=== PATIENT | male | born 1955 | race Caucasian/White ===

== ENCOUNTER 2017-04-30 12:31 | Emergency (ER) | payer SELFPAY ==
[~2017-04-30] VITALS: Ht 185.4 cm; Wt 102.3 kg
[2017-04-30 12:32] VITALS: BP 160/97; PULSE 103; RESP 18; TEMP 98.3; O2SAT 96
[2017-04-30] MEDS ORDERED: CEPH-460 PO (13:07)
[2017-04-30] MEDS ORDERED: BACT800T5 PO (13:07)
--- NOTE | 2017-04-30 13:07 | PD ---
HPI Chief Complaint: Skin Problem Time Seen by Provider: 12:53 Travel History International Travel<30 days: No Contact w/Intl Traveler<30days: No Traveled to known affect area: No History of Present Illness HPI This is a 61-year-old male here with redness and swelling to the right forearm at the site of an insect bite. Duration 3 days. Denies fever or chills. Unsure of the insect. Symptom severity is moderate. No aggravating or alleviating factors. PFSH Past Medical History Medical History: Denies Significant Hx Tetanus Vaccination: > 5 Years Social History Alcohol Use: No Tobacco Use: No Substance Use: No Allergies-Medications (Allergen,Severity, Reaction): Coded Allergies: No Known Allergies (Unverified , 04/30/17) Reported Meds & Prescriptions Reported Meds & Active Scripts Active No Active Prescriptions or Reported Medications Review of Systems Except as stated in HPI: all other systems reviewed are Neg General / Constitutional: No: Fever Physical Exam Narrative GENERAL: Alert and well-appearing 61-year-old male SKIN: Warm and dry. 13 x 7 area of erythema to the right forearm with a central area of induration and a small pustule. No fluctuance. No lymphangitis. No joint involvement. HEAD: Normocephalic. EYES: No injection or drainage. NECK: Supple, trachea midline. CARDIOVASCULAR: Regular rate and rhythm RESPIRATORY: Breath sounds equal bilaterally. No accessory muscle use. MUSCULOSKELETAL: No cyanosis, or edema. See skin noted above. No joint involvement. Data Data Last Documented VS Vital Signs Date Time Temp Pulse Resp B/P (MAP) Pulse Ox O2 Delivery O2 Flow Rate FiO2 04/30/17 12:32 98.3 103 18 160/97 (118) 96 Orders Orders Sulfamet-Trimeth Ds 800-160 Mg (Bactrim (04/30/17 13:15) Cephalexin (Keflex) (04/30/17 13:15) MDM Medical Decision Making Medical Screen Exam Complete: Yes Emergency Medical Condition: Yes Differential Diagnosis Infected insect bite, abscess, cellulitis Narrative Course This is a 61-year-old male here with an infected insect bite and surrounding cellulitis to the right forearm. He is nontoxic appearing. The area has a small area of induration without fluctuance. The area was marked with a wound marker. He will be prescribed Bactrim and Keflex. Instructed to follow-up with his primary doctor for recheck in one to 2 days. Return prior feet develops new or worsening symptoms. Diagnosis Primary Impression: Cellulitis Qualified Codes: L03.113 - Cellulitis of right upper limb Referrals: Primary Care Physician Additional Instructions: Antibiotics as prescribed. Follow-up with her doctor in 1-2 days for recheck. Return if he developed fever, chills, increasing pain or redness. Scripts Sulfamethoxazole-Trimethoprim (Bactrim DS) 800-160 Mg Tab 1 TAB PO BID for Infection, #20 TAB 0 Refills Prov: Taryn Watson 04/30/17 Cephalexin (Keflex) 500 Mg Cap 500 MG PO Q6H for Infection for 10 Days, #40 CAP 0 Refills Prov: Taryn Watson 04/30/17 Disposition: 01 DISCHARGE HOME Condition: Stable Taryn Watson Apr 30, 2017 13:07
[2017-04-30] MEDS ORDERED: SULFAMETHOXAZOLE-TRIMETHOPRIM DS 800-160 MG TAB PO ONE (13:15)
[2017-04-30] MEDS ORDERED: CEPHALEXIN MONOHYDRATE 500 MG CAP PO ONE (13:15)
== END 2017-04-30 13:15 | disposition home or self-care (01) ==
LOC: NEPK 12:31
DX: L03.113 Cellulitis of right upper limb (principal); S50.861A Insect bite (nonvenomous) of right forearm, initial encounter; W57.XXXA Bitten or stung by nonvenomous insect and other nonvenomous arthropods, initial encounter
CPT/HCPCS: 99284

== ENCOUNTER 2017-05-03 19:09 | Emergency (ER) | payer OTHER ==
[~2017-05-03] VITALS: Ht 185.4 cm; Wt 100.0 kg
[~2017-05-03 19:09] MED LIST: BACT800T5 PO; CEPH-460 PO
[2017-05-03 19:10] VITALS: BP 129/83; PULSE 92; RESP 16; TEMP 98.3; O2SAT 99
[2017-05-03] MEDS ORDERED: CLINDAMYCIN INJ 600 MG in SODIUM CHLORIDE 0.9% INJ 100 ML IV ONE (20:45)
[2017-05-03] MEDS ORDERED: SODIUM CHLOR 0.9% 1000 ML INJ 1,000 ML IV ONE (20:45)
--- NOTE | 2017-05-03 21:55 | PD ---
HPI Chief Complaint: Skin Problem Time Seen by Provider: 20:20 Travel History International Travel<30 days: No Contact w/Intl Traveler<30days: No Traveled to known affect area: No History of Present Illness HPI 61 y male presents to the ED with a persistent lesion to the right forearm. Says he was here in the ED April 30 and he was diagnosed with cellulitis and discharged home with Bactrim and Keflex. States that part of the cellulitis has resolved however, states that the redness has moved up the inside of his arm. Patient denies fever or chills. Denies nausea, vomiting. States he otherwise feels well but he is concerned because of the redness up his arm. In addition, patient states that the lesion on the outside of his form is still hard and tender to palpation. States compliance with his medications. States he is on day 2-2-1/2 of his Bactrim and Keflex. PFSH Social History Alcohol Use: Yes Tobacco Use: No Substance Use: No Allergies-Medications (Allergen,Severity, Reaction): Coded Allergies: No Known Allergies (Unverified , 05/03/17) Reported Meds & Prescriptions Reported Meds & Active Scripts Active Clindamycin (Clindamycin HCl) 300 Mg Cap 300 Mg PO TID 7 Days Bactrim DS (Sulfamethoxazole-Trimethoprim) 800-160 Mg Tab 1 Tab PO BID Keflex (Cephalexin) 500 Mg Cap 500 Mg PO Q6H 10 Days Review of Systems Except as stated in HPI: all other systems reviewed are Neg Physical Exam Narrative GENERAL: Well-nourished in no apparent distress resting comfortably in bed SKIN: Focused skin assessment warm/dry. Right forearm HEAD: Atraumatic. Normocephalic. EYES: Pupils equal and round. No scleral icterus. No injection or drainage. ENT: No nasal bleeding or discharge. Mucous membranes pink and moist. NECK: Trachea midline. No JVD. CARDIOVASCULAR: Regular rate and rhythm. No murmur appreciated. RESPIRATORY: No accessory muscle use. Clear to auscultation. Breath sounds equal bilaterally. GASTROINTESTINAL: Abdomen soft, non-tender, nondistended. Hepatic and splenic margins not palpable. MUSCULOSKELETAL: No obvious deformities. No clubbing. No cyanosis. No edema. NEUROLOGICAL: Awake and alert. No obvious cranial nerve deficits. Motor grossly within normal limits. Normal speech. PSYCHIATRIC: Appropriate mood and affect; insight and judgment normal. Data Data Last Documented VS Vital Signs Date Time Temp Pulse Resp B/P (MAP) Pulse Ox O2 Delivery O2 Flow Rate FiO2 05/03/17 22:39 05/03/17 22:35 83 16 96 Room Air 05/03/17 19:10 98.3 Orders Orders Sodium Chlor 0.9% 1000 Ml Inj (Ns 1000 M (05/03/17 20:45) Clindamycin Inj (Cleocin Inj) (05/03/17 20:45) Ed Discharge Order (05/03/17 22:07) MDM Medical Decision Making Medical Screen Exam Complete: Yes Emergency Medical Condition: Yes Differential Diagnosis Right forearm cellulitis, abscess, erysipelas Narrative Course 61 y male presents to the ED with a persistent lesion to the right forearm. Says he was here in the ED April 30 and he was diagnosed with cellulitis and discharged home with Bactrim and Keflex. States that part of the cellulitis has resolved however, states that the redness has moved up the inside of his arm. Patient denies fever or chills. Denies nausea, vomiting. States he otherwise feels well but he is concerned because of the redness up his arm. In addition, patient states that the lesion on the outside of his form is still hard and tender to palpation. States compliance with his medications. States he is on day 2-2-1/2 of his Bactrim and Keflex. Vital signs stable. Exam findings consistent with an abscess and cellulitis of the right arm. Area of erythema marked and significantly decreased in the initial cellulitic area. Right middle arm with area of erysipelas versus cellulitis extending 1-2 inches without lymphangial pathic spread. Neurovascularly intact. Incision and drainage performed on the lateral aspect of right forearm. Clindamycin 600 mg IV administered in the emergency department to today along with 1 L IV fluid bolus. Patient will be discharged to continue Bactrim. Add clindamycin. Hold Keflex. I strongly advised him to follow-up with his primary care physician within 1-2 days. Advised that if he is not he should follow-up here in the emergency department 1-2 days. Advised on worsening infectious process. Advised on wound care. Diagnosis Primary Impression: Abscess Additional Impression: Cellulitis Qualified Codes: L03.113 - Cellulitis of right upper limb Referrals: Primary Care Physician Additional Instructions: Follow up with your primary care physician within 2-3 days. If your symptoms persist or worsen, return to the emergency department. Keep area clean and dry for 24 hrs. Return to the emergency department in 1-2 days for wound change and wound check. Take all antibiotics as prescribed. Change dressings daily after 24 hours. If he developed increased redness, swelling, or pain return to the emergency department. Scripts Clindamycin (Clindamycin) 300 Mg Cap 300 MG PO TID for Infection for 7 Days, CAP 0 Refills Prov: Evelyne Layne 05/03/17 Disposition: 01 DISCHARGE HOME Condition: Stable Evelyne Layne May 03, 2017 21:55
[2017-05-03] MEDS ORDERED: CLIN300C5 PO (22:02)
[2017-05-03 22:35] VITALS: BP 143/91; PULSE 83; RESP 16; O2SAT 96
== END 2017-05-03 22:50 | disposition home or self-care (01) ==
LOC: NEPC 19:09
DX: L02.413 Cutaneous abscess of right upper limb (principal); L03.113 Cellulitis of right upper limb; Z79.2 Long term (current) use of antibiotics
CPT/HCPCS: 96365; 99284; J7030

== ENCOUNTER 2017-12-17 10:03 | Inpatient (IN) ==
[2017-12-17] MEDS ORDERED: Acetaminophen 325 MG Tablet PO ONE (12:20)
--- NOTE | 2017-12-17 12:30 | ED ---
HPI General Chief Complaint: Extremity Injury, Upper Stated Complaint: Right arm pain Time Seen by Provider: 12/17/17 12:05 Source: patient and old records reviewed Mode of arrival: ambulatory Limitations: no limitations History of Present Illness HPI narrative: The patient is a 62-year-old male presenting with complaint of right elbow swelling. The patient was seen here on May 2017 with similar symptoms and prior to that on April 30 was diagnosed with cellulitis and was discharged with Bactrim and Keflex. He did get better with the antibiotics but then returned again on the second and he was placed on Bactrim clindamycin was also given at that time in the ED. Patient was advised to continue on Bactrim and Keflex was replaced with clindamycin as an outpatient. He never followed up and he stated that his swelling did resolve. He he has been having right elbow pain and some swelling to palpation for the past 2 days. It does not hurt with active or passive range of motion internal he is just hurts over the fluid collection which is at the olecranon bursa area. Denies fever chills nausea vomiting diarrhea denies any confusion. Related Data Home Medications Medication Instructions Recorded Confirmed No Known Home Medications 12/17/17 12/17/17 Allergies Allergy/AdvReac Type Severity Reaction Status Date / Time No Known Allergies Allergy Unverified 05/03/17 19:26 Review of Systems ROS: all other systems reviewed are negative [facility] Medical History Medical History Cellulitis of right elbow (Acute) Osteoarthritis (Acute) Surgical History Surgical History H/O repair of left rotator cuff (Acute) Hx of Achilles tendon repair (Acute) Hx of detached retina repair (Acute) Hx of hernia repair (Acute) Hx of reconstruction of anterior cruciate ligament tear (Acute) Hx of total knee arthroplasty (Acute) Family History Family History Mother Bone cancer Father Pulmonary asbestosis Social History Social History Substance History: No History of Abuse Smoking Status: Never smoker How Often Do You Have a Drink Containing Alcohol: 2 to 3 times a week Immunization History Tetanus Immunization: Unsure Hx Influenza Vaccine This Season: No Exam Narrative Exam Narrative: GENERAL: Alert and oriented no distress SKIN: Focused skin assessment warm/dry. Cellulitis of the right elbow area. HEAD: Atraumatic. Normocephalic. EYES: Pupils equal and round. No scleral icterus. No injection or drainage. ENT: No nasal bleeding or discharge. Mucous membranes pink and moist. NECK: Trachea midline. No JVD. CARDIOVASCULAR: Regular rate and rhythm. No murmur appreciated. RESPIRATORY: No accessory muscle use. Clear to auscultation. Breath sounds equal bilaterally. GASTROINTESTINAL: Abdomen soft, non-tender, nondistended. Hepatic and splenic margins not palpable. MUSCULOSKELETAL: Right elbow with swelling in the bursa area posteriorly no tenderness to palpation no tenderness with passive or active range of motion. Neurovascularly intact. Flexion fluid collection noted on the olecranon bursa area. NEUROLOGICAL: Awake and alert. No obvious cranial nerve deficits. Motor grossly within normal limits. Normal speech. PSYCHIATRIC: Appropriate mood and affect; insight and judgment normal. Course Consultations Consultation #1: Dr Pedraza orthopedic surgery called us back recommends aspiration of the bursal fluid. and admission for possible wash-out in the ER. Wants him NPO after midnight Time: 15:37 Initial Documented Vital Signs Temperature 98.1 F 12/17/17 10:08 Pulse Rate 96 H 12/17/17 10:08 Respiratory Rate 15 12/17/17 10:08 Blood Pressure 156/91 H 12/17/17 10:08 Pulse Oximetry 95 12/17/17 10:08 Last Documented Vital Signs Temperature 98.1 F 12/17/17 10:08 Pulse Rate 88 12/17/17 12:08 Respiratory Rate 18 12/17/17 12:08 Blood Pressure 155/88 H 12/17/17 12:08 Pulse Oximetry 97 12/17/17 12:08 Medical Decision Making [facility] Narrative Medical decision making narrative: Joint was aspirated and synovial fluid was sent to lab for cultures and sensitivities as per also request. Marked cellulitis of the right elbow Also noted on physical examination and CT and was communicated to orthopedic surgeon. He was started on 2 g of Ancef and placed n.p.o. after midnight. Medical Screen Exam Complete: Yes Emergency Medical Condition: Yes Lab Data Lab results reviewed: Yes I reviewed the patient's lab results. Result diagrams: 12/17/17 12:39 12/17/17 12:39 Lab Results 12/17/17 12/17/17 12/17/17 Range/Units 12:39 12:39 12:39 WBC 10.0 (4.0-11.0) th/mm3 RBC 5.16 (4.50-5.90) mil/mm3 Hgb 16.6 (13.0-17.0) gm/dL Hct 48.8 (39.0-51.0) % MCV 94.6 (80.0-100.0) fL MCH 32.2 (27.0-34.0) pg MCHC 34.1 (32.0-36.0) % RDW 13.3 (11.6-17.2) % Plt Count 224 (150-450) th/mm3 MPV 8.2 (7.0-11.0) fL Neut % (Auto) 70.7 H (16.0-70.0) % Lymph % (Auto) 22.2 (9.0-44.0) % Evangeline % (Auto) 6.2 (0.0-8.0) % Eos % (Auto) 0.4 (0.0-4.0) % Baso % (Auto) 0.5 (0.0-2.0) % Neut # (Auto) 7.1 (1.8-7.7) th/mm3 Lymph # (Auto) 2.2 (1.0-4.8) th/mm3 Evangeline # (Auto) 0.6 (0.0-0.9) th/mm3 Eos # (Auto) 0.0 (0.0-0.4) th/mm3 Baso # (Auto) 0.0 (0.0-0.2) th/mm3 WBC Differential . Differential Comment Auto diff final ESR 2 (0-20) mm/hr Sodium 140 (136-145) meq/L Potassium 4.0 (3.5-5.1) meq/L Chloride 106 (98-107) meq/L Carbon Dioxide 25.3 (21.0-32.0) meq/L Anion Gap 9 (5-15) meq/L BUN 14 (7-18) mg/dL Creatinine 1.24 (0.60-1.30) mg/dL Estimated GFR 59 L (>89) mL/min Random Glucose 98 (74-106) mg/dL Calcium 8.3 L (8.5-10.1) mg/dL Synovial Crystals (None) 12/17/17 Range/Units 15:55 WBC (4.0-11.0) th/mm3 RBC (4.50-5.90) mil/mm3 Hgb (13.0-17.0) gm/dL Hct (39.0-51.0) % MCV (80.0-100.0) fL MCH (27.0-34.0) pg MCHC (32.0-36.0) % RDW (11.6-17.2) % Plt Count (150-450) th/mm3 MPV (7.0-11.0) fL Neut % (Auto) (16.0-70.0) % Lymph % (Auto) (9.0-44.0) % Evangeline % (Auto) (0.0-8.0) % Eos % (Auto) (0.0-4.0) % Baso % (Auto) (0.0-2.0) % Neut # (Auto) (1.8-7.7) th/mm3 Lymph # (Auto) (1.0-4.8) th/mm3 Evangeline # (Auto) (0.0-0.9) th/mm3 Eos # (Auto) (0.0-0.4) th/mm3 Baso # (Auto) (0.0-0.2) th/mm3 WBC Differential Differential Comment ESR (0-20) mm/hr Sodium (136-145) meq/L Potassium (3.5-5.1) meq/L Chloride (98-107) meq/L Carbon Dioxide (21.0-32.0) meq/L Anion Gap (5-15) meq/L BUN (7-18) mg/dL Creatinine (0.60-1.30) mg/dL Estimated GFR (>89) mL/min Random Glucose (74-106) mg/dL Calcium (8.5-10.1) mg/dL Synovial Crystals None (None) Imaging Data Radiologist's impression: Elbow CT 12/17/17 12:20 CONCLUSION: 1. Prominent olecranon bursa with peripheral enhancement, possible bursitis. Impressive surrounding cellulitis. 2. 2 small loose bodies within the joint space Discharge Plan Discharge Disposition Patient Disposition: 30 Still Patient Discharge Condition Condition: Good Discharge Details Diagnosis: Olecranon bursitis, right elbow, Cellulitis of right elbow Physicians Team ED Provider: Danny Garsia Primary Care Provider: Primary Care Camila,Angela Other Providers: Jalil Pedraza Rxs /Orders / Referrals /Forms Prescriptions: No Action No Known Home Medications RF: 0 Discharge Instructions Patient Printed Instructions: Incision and Drainage (DC) Status ED Status: Pending Admission
[2017-12-17 12:58] LABS: Baso % (Auto) 0.5 % (0.0-2.0); Eos % (Auto) 0.4 % (0.0-4.0); Hematocrit 48.8 % (39.0-51.0); Hemoglobin 16.6 gm/dL (13.0-17.0); Lymph # (Auto) 2.2 th/mm3 (1.0-4.8); Lymph % (Auto) 22.2 % (9.0-44.0); Mean Corpuscular HGB Conc 34.1 % (32.0-36.0); Mean Corpuscular Hemoglobin 32.2 pg (27.0-34.0); Mean Corpuscular Volume 94.6 fL (80.0-100.0); Mean Platelet Volume 8.2 fL (7.0-11.0); Mono # (Auto) 0.6 th/mm3 (0.0-0.9); Mono % (Auto) 6.2 % (0.0-8.0); Neut # (Auto) 7.1 th/mm3 (1.8-7.7); Neut % (Auto) 70.7 % (16.0-70.0); Platelet Count 224 th/mm3 (150-450); Red Blood Count 5.16 mil/mm3 (4.50-5.90); Red Cell Distribution Width 13.3 % (11.6-17.2)
[2017-12-17 13:22] LABS: Calcium 8.3 mg/dL (8.5-10.1); Carbon Dioxide 25.3 meq/L (21.0-32.0)
[2017-12-17] MEDS ORDERED: ceFAZolin 2 GM Premix Inj 2 GM/50 ML PIGGYBACK IV.SIG ONE (16:09)
[2017-12-17] MEDS ORDERED: Acetaminophen 325 MG Tablet PO PRN (16:39)
[2017-12-17] MEDS ORDERED: Vancomycin Consult Pharmacy OTHER PRN (17:20)
[2017-12-17 20:34] LABS: Lymphocytes,Synovial Fluid 1 %; Neutrophils,Synovial Fluid 99 % (0-25)
[2017-12-17 21:15] LABS: Appearance,Synovial Fluid Moderate (Clear); Color,Synovial Fluid Yellow (Straw)
[2017-12-17] MEDS: Senna/Docusate Sodium 8.6/50 MG Tablet PO SCH (21:47)
[2017-12-17] MEDS: Sod Chloride 0.9% Inj 1,000 ML IV.CONT SCH (21:47)
[2017-12-18] MEDS ORDERED: Vancomycin Inj 2,000 MG in Sodium Chlor 0.9% Inj 500 ML IV.SIG ONE ×2
[2017-12-18 07:21] LABS: Baso % (Auto) 0.2 % (0.0-2.0); Eos # (Auto) 0.1 th/mm3 (0.0-0.4); Eos % (Auto) 0.7 % (0.0-4.0); Hematocrit 42.7 % (39.0-51.0); Hemoglobin 14.9 gm/dL (13.0-17.0); Lymph # (Auto) 1.7 th/mm3 (1.0-4.8); Mean Corpuscular Hemoglobin 32.4 pg (27.0-34.0); Mean Corpuscular Volume 92.5 fL (80.0-100.0); Mean Platelet Volume 8.3 fL (7.0-11.0); Mono # (Auto) 0.6 th/mm3 (0.0-0.9); Neut % (Auto) 68.1 % (16.0-70.0); Platelet Count 214 th/mm3 (150-450); Red Blood Count 4.62 mil/mm3 (4.50-5.90); Red Cell Distribution Width 13.1 % (11.6-17.2); White Blood Count 7.4 th/mm3 (4.0-11.0)
[2017-12-18 07:45] LABS: Carbon Dioxide 24.5 meq/L (21.0-32.0); Potassium 3.9 meq/L (3.5-5.1)
[2017-12-18] MEDS: Senna/Docusate Sodium 8.6/50 MG Tablet PO SCH ×2 (08:09→21:38)
[2017-12-18] MEDS: Sod Chloride 0.9% Inj 1,000 ML IV.CONT SCH ×2 (08:12→17:27)
[2017-12-18] MEDS: Vancomycin Inj 1,300 MG in Sodium Chlor 0.9% Inj 500 ML IV.SIG SCH (12:37)
--- NOTE | 2017-12-18 20:17 | ECG ---
Date Performed: 12/18/2017 Time Performed: 07:06:07 PTAGE: 62 years EKG: Sinus rhythm NORMAL ECG NO PREVIOUS TRACING DOCTOR: Thelma Romero Interpretating Date/Time 12/18/2017 20:16:58
[2017-12-19] MEDS: Vancomycin Inj 1,300 MG in Sodium Chlor 0.9% Inj 500 ML IV.SIG SCH ×2 (00:30→13:54)
[2017-12-19] MEDS: Sod Chloride 0.9% Inj 1,000 ML IV.CONT SCH ×3 (00:33→14:01)
[2017-12-19] MEDS: Senna/Docusate Sodium 8.6/50 MG Tablet PO SCH ×2 (08:29→21:12)
[2017-12-19] MEDS ORDERED: Pharmacy Ordered Lab Info OTHER ONE (12:45)
[2017-12-20] MEDS: Sod Chloride 0.9% Inj 1,000 ML IV.CONT SCH ×2 (00:23→11:12)
[2017-12-20] MEDS: ceFAZolin Inj 2,000 MG in Sodium Chlor 0.9% Inj 80 ML IV.SIG SCH ×4 (00:23→22:59)
[2017-12-20] MEDS ORDERED: Vancomycin Inj 1,500 MG in Sodium Chlor 0.9% Inj 500 ML IV.SIG SCH (01:00)
[2017-12-20] MEDS: Senna/Docusate Sodium 8.6/50 MG Tablet PO SCH ×2 (08:08→23:00)
[2017-12-20] MEDS ORDERED: Chlorhexidine Gluconate 2% 1 Pack (2 Cloths) TOPICAL ONE (10:15)
[2017-12-20] MEDS ORDERED: Lidocaine PF 1% Inj 5 ML Syringe OTHER ONE (11:15)
[2017-12-20] MEDS ORDERED: Post-op Orders (for Pharmacy) OTHER STA (12:10)
[2017-12-20] MEDS ORDERED: fentaNYL Citrate Inj 100 MCG/2 ML Ampul ONE (12:13)
[2017-12-20] MEDS ORDERED: *morphine SULFATE 4 MG/ML PERIprocedure ONLY ONE (12:21)
[2017-12-20] MEDS: Morphine Inj 4 MG/ML Vial IV.PUSH PRN (22:53)
[2017-12-21] MEDS: Morphine Inj 4 MG/ML Vial IV.PUSH PRN ×2 (03:54→07:31)
[2017-12-21] MEDS: ceFAZolin Inj 2,000 MG in Sodium Chlor 0.9% Inj 80 ML IV.SIG SCH ×3 (09:09→23:18)
[2017-12-21] MEDS: Senna/Docusate Sodium 8.6/50 MG Tablet PO SCH ×2 (09:09→20:56)
[2017-12-22] MEDS: ceFAZolin Inj 2,000 MG in Sodium Chlor 0.9% Inj 80 ML IV.SIG SCH (09:42)
[2017-12-22] MEDS: Senna/Docusate Sodium 8.6/50 MG Tablet PO SCH (09:43)
== END 2017-12-22 10:49 | disposition home or self-care (01) ==
LOC: NEPC 10:03 → NEDA 10:03 → N07 19:57
PROVIDERS: ADMIT Internal Medicine; ATTEND Internal Medicine